=== PATIENT | female | born 1970 | race Caucasian/White ===

== ENCOUNTER 2016-08-04 16:02 | Inpatient (IN) ==
[2016-08-04] MEDS ORDERED: *HR* Morphine Soln 10 MG/5 ML UDC PO PRN (16:03)
[2016-08-04] MEDS ORDERED: Bisacodyl 10 MG RECTAL SUPPOSITORY RC PRN (16:25)
[2016-08-04] MEDS ORDERED: *HR* Promethazine 25 MG/ML VIAL IVP PRN (16:30)
[2016-08-04] MEDS ORDERED: Ipratropium/Albuterol Neb 3 ML IH PRN (16:30)
[2016-08-04] MEDS ORDERED: Ondansetron 4 MG/2 ML VIAL IVP PRN (16:30)
--- NOTE | 2016-08-04 16:52 | Palliative - Consult Note ---
Date of Encounter: 08/04/16 Time of Encounter: 17:38 - Assessment and Plan (1) Cancer related pain Status: Acute Assessment and plan: Ms. Chu has been on fentanyl patch 300 g, with oral morphine concentrate 60 mg every hour. She has been receiving morphine concentrate hourly for greater than 30 hours. She is admitted to [facility] for management of an acute pain crisis related to her cancer. We will initiate hydromorphone TOWER CLEANER with starting dose at 2 mg per hour and a TOWER CLEANER dose of 0.5 mg every 6 minutes as needed. Titrate accordingly. (2) Dyspnea Status: Acute Assessment and plan: Dyspnea likely related to cancer. Position for comfort. Hydromorphone TOWER CLEANER to assist with pain management and dyspnea management. Supplemental oxygen not to exceed 8 L/m. DuoNeb's every 4 hours as needed. Decadron 4 mg by mouth twice a day. Qualifiers: Dyspnea type: shortness of breath Qualified Code(s): R06.02 - Shortness of breath (3) Anxiety Status: Acute Assessment and plan: Family reports intolerance of lorazepam. She responds well to haloperidol. (4) Admission for hospice care Status: Acute Assessment and plan: 45-year-old female patient admitted for general inpatient hospice care for treatment of intractable pain and dyspnea related to small cell lung cancer. She will be placed on a hydromorphone TOWER CLEANER pump with titration as necessary. CODE STATUS DNR comfort care. Hospice nurse at bedside upon arrival. Patient does appear to be near end-of-life. Supportive care. Family notified and en route to the hospital. Given the patient's current physical examination and level of acuity, she will remain under general inpatient hospice care. (5) Constipation Status: Acute Assessment and plan: Constipation due to chronic opioid use. Unknown last bowel movement. Hospice nurse reports recent digital rectal exam 2 days ago with no stool noted in the rectal vault. Schedule MiraLAX daily if she is able to take in oral medications , bisacodyl rectal suppositories when necessary. Qualifiers: Constipation type: drug induced constipation Qualified Code(s): K59.03 - Drug induced constipation (6) Small cell lung cancer Status: Chronic Qualifiers: Laterality: left Qualified Code(s): C34.92 - Malignant neoplasm of unspecified part of left bronchus or lung Palliative-CN HPI - Data of Consult Patient: new to practice Consult date: 08/04/16 Requesting Physician: Renny Wall MD - Consult Narrative Palliative Care/Comfort Measures: Palliative care Reason for consult: symptom management History of present illness: Ms. Chu is a 45 year old female patient diagnosed with stage IV small cell lung C in May 2016. She started antineoplastic therapy at the [facility] and [facility] shortly following diagnosis. Unfortunately, she had progression of disease despite treatment, and the side effects of treatment caused her to decline. She elected to enroll in hospice care and focus on symptom management. Ms. Chu is admitted to general inpatient hospice for intense symptom control. She has been on escalating doses of oral morphine concentrate over the past 24 hours. Please see medication list for current doses. Ms. Chu has been experiencing worsening pain over the past week and she currently rates as 7 out of 10. A tolerable level for her is 0/10. She utilizes a fentanyl patch with oral morphine as needed for breakthrough pain. Her morphine dose has escalated to 60mg oral morphine concentrate hourly for > 30 hours. She does have a history of opioid abuse (oxycodone) and was seeking care at a suboxone clinic as recent as 2 months ago. Ms. Chu does use marijuana occasionally. Her hospice nurses at bedside and does provide some history as the patient is unable to carry on conversation. CC: Renny Wall MD Past Med Surg Social Fam HX - Past Medical History Source: old records reviewed Medical history: cancer (small cell lung CA), coronary artery disease ([place] in 1993), other (rectal fistula) Psychiatric history: anxiety, depression - Past Surgical History Surgical History: cholecystectomy, coronary bypass (CABG), hysterectomy, orthopedic, other (right knee arthroscope, lumbar fusion) - Social History Smoking Status: Current every day smoker Smokeless Tobacco Status: No Alcohol use: none Drug use: marijuana, prescription drug abuse - Family History Mother Living Status: Still Living Hx Family Cardiac Disorders: Yes Hx Family Respiratory Disorders: No Hx Family Cancer: Yes Hx Family GI Disorders: No Hx Family Endocrine Disorder: No Hx Family Neuromuscular Disorders: No Hx Family Neurologic Disorders: No Hx Family HEENT Disorders: No Hx Family Autoimmune Disorders: No Medications and Allergies Albuterol Sulfate [Albuterol Inhaler] 90 mcg IH Q4HR PRN 04/12/15 [History] Buspirone HCl [Buspar] 7.5 mg PO BID 04/12/15 [History] Ropinirole HCl [Requip] 3 mg PO HS 04/12/15 [History] Magnesium Oxide [Magnesium] 400 mg PO BID #60 tablet 05/24/16 [Rx] Potassium Chloride [K-Tab ER] 20 meq PO DAILY #30 tablet.er 05/24/16 [Rx] Clotrimazole [Mycelex Logan] 10 mg MM 5XD #50 logan 06/02/16 [Rx] Docusate [Colace] 100 mg PO BID #60 capsule 06/02/16 [Rx] Polyethylene Glycol 3350 [MiraLAX Powder Bulk 17.9 Oz] 1 scoop PO DAILY #510 gm 06/02/16 [Rx] Megestrol Acetate [Megace] 10 ml PO BID #400 mls 06/09/16 [Rx] Budesonide/Formoterol 160/4.5 [Symbicort 160/4.5] 2 puff IH BIDR 06/27/16 [ History] FentaNYL PATCH [Duragesic] 50 mcg TD Q72H #10 patch.td72 07/18/16 [Rx] Promethazine [Phenergan] 25 mg PO Q6HR PRN #30 tablet 07/18/16 [Rx] ALPRAZolam [Xanax 1 MG Tablet] 1 mg PO TID #90 tablet 07/21/16 [Rx] Hydromorphone HCl [Dilaudid] 4 mg PO Q6H PRN #120 tablet 07/21/16 [Rx] Promethazine [Phenergan] 25 mg RC Q6HR PRN #20 supp.rect 07/24/16 [Rx] Supplies [SUPPLIES] 1 each .ROUTE DAILY #1 each 07/25/16 [Rx] Dexamethasone [Decadron] 4 mg PO DAILY #30 tab 07/27/16 [Rx] Magic Mouthwash [Magic Mouthwash BLM] 10 ml PO Q4H PRN #240 ml 07/27/16 [Rx] Magic Mouthwash [Magic Mouthwash BLM] 10 ml PO QID PRN #240 ml 07/28/16 [Rx] Sucralfate [Carafate] 1 gm PO QID #120 tablet 07/28/16 [Rx] Allergies No Known Allergies Allergy (Verified 07/18/16 13:52) ROS unobtainable: due to mental status Review of systems: unable to assess detailed ROS due to pain crisis, will do complete ROS when symptoms are controlled. Palliative Care-Exam - Constitutional General appearance: Present: cooperative Exam: 45 year old female appearing chronically ill. She is minimally responsive, but when she wakes up, she is in distress (dyspneic, moaning, rocking motions). Right sided upper extremity/chest/and facial edema - Eye Eye exam: Present: periorbital swelling - ENT ENT exam: Present: mucous membranes dry - Respiratory Respiratory exam: Present: accessory muscle use, respiratory distress, rhonchi ( audible rhonchi) - Expanded Respiratory Exam Location: rhonchi: Left, Right, Lower, Upper - Cardiovascular Additional comments: heart tones obscured by lung sounds, pulse rate tachycardic and regular - GI/Abdominal Exam GI/Abdominal exam: Present: normal bowel sounds, soft. Absent: tenderness - Rectal Rectal exam: Present: deferred - Extremities Exam Extremities exam: Present: pedal edema (mild) - Expanded Upper Extremities Exam Upper Arm exam: Present: swelling (right side) - Neurological Exam Additional comments: alert with periods of somnolence, follows basic commands - Skin Additional comments: skin color ashen, warm and dry Palliative Quality Palliative Quality: Screen for Code Status: Yes, Screen for Goals of Care: Yes, Screen for Pain: Yes, If Pain Regimen Started, Initiate Bowel Regimen: Yes, Screen for Nausea/Vomitting: Yes Code Status: 08/04/16 16:25 Resuscitation Status: Active [RES] Routine Resuscitation Status: DNR-Comfort Care Comment:
[2016-08-04] MEDS: Haloperidol Oral Conc 10 MG/5 ML UDC PO PRN ×2 (17:46→20:39)
[2016-08-04] MEDS ORDERED: 0.9 % Sodium Chloride 1,000 ML ONE (18:01)
[2016-08-04] MEDS: Furosemide 40 MG TABLET PO SCH (18:12)
[2016-08-04] MEDS: Magic Mouthwash 10 ML UD Cup PO SCH (18:12)
[2016-08-04] MEDS: *HR* HYDROmorphone 20 MG/20 ML PCA IVC SCH (18:22)
[2016-08-04] MEDS ORDERED: *HR* LORazepam 2 MG/ML VIAL IVP SCH (20:00)
[2016-08-04] MEDS ORDERED: Divalproex (24 HR) 500 MG TABLET PO SCH (21:00)
[2016-08-04] MEDS: Budesonide/Formoterol 160/4.5 MDI IH SCH (23:10)
[2016-08-04] MEDS: Gabapentin 300 MG CAPSULE PO SCH (23:45)
[2016-08-04] MEDS: ALPRAZolam 1 MG TABLET PO SCH (23:45)
[2016-08-05] MEDS: *HR* HYDROmorphone 20 MG/20 ML PCA IVC SCH ×3 (02:48→21:58)
[2016-08-05] MEDS: Budesonide/Formoterol 160/4.5 MDI IH SCH (08:32)
[2016-08-05] MEDS ORDERED: Dexamethasone 10 MG/ML VIAL IVP ONE (10:00)
[2016-08-05] MEDS ORDERED: *HR* HYDROmorphone 20 MG/20 ML PCA IVC SCH ×4 (10:07→14:19)
--- NOTE | 2016-08-05 10:17 | Palliative Progress Note ---
Date of Encounter: 08/05/16 Time of Encounter: 10:12 - Assessment and plan (1) Dyspnea Current Visit: Yes Status: Acute Assessment and plan: Dyspnea refractory to current treatment. Schedule nebulizers Q4 hours, change lasix to 40mg IVP daily, Decadron 16mg today. May consider palliative sedation if symptoms persist. Qualifiers: Dyspnea type: shortness of breath Qualified Code(s): R06.02 - Shortness of breath (2) Cancer related pain Current Visit: No Status: Acute Assessment and plan: Continue with Fentanyl patch at 300mcg/hr. Increase Dilaudid drip to 3mg/hr with a 0.5mg bolus dose as needed. (3) Anxiety Current Visit: Yes Status: Acute Assessment and plan: Patient did not have therapeutic effect when using lorazepam in the past. May consider trial of alternate benzodiazepine if symptoms persist. Patient is adamant that she does NOT want to try lorazepam due to the adverse effects she experienced earlier this year. She is awake and able to discuss Xanax dosing with me. Will adjust the alprazolam to every 4 hours. (4) Admission for hospice care Current Visit: Yes Status: Acute Assessment and plan: Ms. Chu is currently under general in-patient hospice care for uncontrolled dyspnea and pain. Her opioid therapy has been titrated up to hydromorphone 3mg/ hr continuous with bolus dosing as needed in addition to the Fentanyl patch. Discussed plan of care with patient's mother. Consulted with CAPC guidelines, Palliative WAREHOUSE ADMINISTRATOR, Hospice Corporate Quality Engineer-Dr. Jayme Kim, Joshua ibrahim (hospice pharmacy), as well as hospital pharmacist. Ms. Chu's family is well aware of the risks associated with high opioid doses including ( but not limited to) respiratory depression and even , family verbalizes understanding. Family present at bedside. Pipe Stem Sawyer services offered. Ms. Chu is at early end of life and not expected to survive long. Current plan: Increase hydromorphone drip PRN with additional breakthrough dosing as needed Schedule DuoNebs every 4 hours Supplemental oxygen Haloperidol 10mg IV x1, then 5mg IV every 4 hours as needed (patient's mother reports best symptom control with the use of haloperidol Decadron 16mg IV x 1 dose for dyspnea Lasix 40mg IV daily May place a john catheter as needed Non-Pharmacological Measures: Cool room with fan Family support at bedside offered music therapy Pipe Stem Sawyer support at bedside Additional considerations: BiPAP with gentle settings for air hunger Phenobarbitol IM vs. PO for uncontrolled anxiety/agitation Palliative sedation (5) Constipation Current Visit: No Status: Chronic Assessment and plan: Bisacodyl PRN with MiraLax PRN. Qualifiers: Constipation type: drug induced constipation Qualified Code(s): K59.03 - Drug induced constipation (6) Small cell lung cancer Current Visit: No Status: Chronic Qualifiers: Laterality: left Qualified Code(s): C34.92 - Malignant neoplasm of unspecified part of left bronchus or lung - Time Spent With Patient Total time spent is greater than 50% in coordination of care (as documented) at patient's floor/unit and/or counseling patient: Greater than 35 minutes - Subjective Interval history: Ms. Chu remains restless/agitated and states she feels like she is "smothering" despite current medications. Her mother reports a very restless night. Her oxygen requirements have been titrated up to 15 liters via nasal cannula. - Constitutional General appearance: Absent: cooperative Exam: 45 year old female in acute distress, agitated and rocking back and forth. - ENT Additional comments: unable to control secretions - Respiratory Respiratory exam: Present: accessory muscle use, respiratory distress Additional comments: audible rhonchi - Cardiovascular Cardiovascular exam: Present: tachycardia - GI/Abdominal GI/Abdominal exam: Present: hypoactive bowel sounds, soft. Absent: tenderness - Extremities Exam Extremities exam: Present: pedal edema Additional comments: right side > left - Neurological Exam Neurological exam: Absent: alert - Psychiatric Psychiatric exam: Present: agitated, anxious - Skin Skin exam: Present: dry, warm. Absent: normal color (ashen) Palliative Quality Palliative Quality: Screen for Code Status: Yes, Screen for Goals of Care: Yes, Screen for Pain: Yes, If Pain Regimen Started, Initiate Bowel Regimen: Yes, Screen for Nausea/Vomitting: Yes Code Status: 08/04/16 16:25 Resuscitation Status: Active [RES] Routine Comment: Resuscitation Status: DNR-Comfort Care Consult Discharge Plan - Plan Referrals: NO,PCP [Primary Care Provider] -
[2016-08-05] MEDS: Magic Mouthwash 10 ML UD Cup PO SCH ×3 (10:45→15:56)
[2016-08-05] MEDS: ALPRAZolam 1 MG TABLET PO SCH ×5 (10:45→20:52)
[2016-08-05] MEDS: Gabapentin 300 MG CAPSULE PO SCH ×3 (10:45→21:18)
[2016-08-05] MEDS: Haloperidol Lactate 5 MG/ML VIAL IVP PRN ×3 (10:46→14:38)
[2016-08-05] MEDS: *HR* HYDROmorphone 2 MG/ML SYRINGE IVP PRN ×7 (11:06→23:44)
[2016-08-05] MEDS ORDERED: Atropine Sulfate 1% 40 DROP/2 ML BOTTLE SL PRN (12:46)
[2016-08-05] MEDS: Scopolamine Patch 1.5 MG PATCH.TD72 TD SCH (13:17)
[2016-08-05] MEDS: Furosemide 40 MG/4 ML VIAL IVP SCH (15:44)
[2016-08-05] MEDS: Furosemide 40 MG TABLET PO SCH (15:57)
[2016-08-05] MEDS: Ipratropium/Albuterol Neb 3 ML IH SCH ×3 (16:56→23:06)
[2016-08-06] MEDS: *HR* HYDROmorphone 20 MG/20 ML PCA IVC SCH ×6 (00:41→22:42)
[2016-08-06] MEDS: *HR* HYDROmorphone 2 MG/ML SYRINGE IVP PRN ×5 (00:45→21:24)
[2016-08-06] MEDS: ALPRAZolam 1 MG TABLET PO SCH ×6 (01:46→21:24)
[2016-08-06] MEDS: Haloperidol Lactate 5 MG/ML VIAL IVP PRN ×3 (03:35→16:43)
[2016-08-06] MEDS: Ipratropium/Albuterol Neb 3 ML IH SCH ×6 (03:43→20:58)
[2016-08-06] MEDS: Furosemide 40 MG/4 ML VIAL IVP SCH (08:25)
[2016-08-06] MEDS ORDERED: Ipratropium/Albuterol Neb 3 ML IH PRN (09:47)
--- NOTE | 2016-08-06 09:58 | Palliative Progress Note ---
Date of Encounter: 08/06/16 Time of Encounter: 10:53 - Assessment and plan (1) Dyspnea Current Visit: Yes Status: Acute Assessment and plan: Dyspnea refractory to current treatment. Schedule nebulizers Q4 hours with every 2 hours as needed, change lasix to 40mg IVP daily, Decadron 8mg today. May consider palliative sedation if symptoms persist. Qualifiers: Dyspnea type: shortness of breath Qualified Code(s): R06.02 - Shortness of breath (2) Cancer related pain Current Visit: No Status: Acute Assessment and plan: Continue with Fentanyl patch at 300mcg/hr. Dilaudid drip to 7mg/hr with a 1.5mg bolus dose as needed. Adjust continuous and PRODUCTION EXPEDITER dose accordingly. (3) Anxiety Current Visit: Yes Status: Acute Assessment and plan: Patient did not have therapeutic effect when using lorazepam in the past. May consider trial of alternate benzodiazepine if symptoms persist. Patient is adamant that she does NOT want to try lorazepam due to the adverse effects she experienced earlier this year. She is awake and able to discuss Xanax dosing with me. Will adjust the alprazolam to every 4 hours, crushed and slurried. Increase Haloperidol to 10mg every 4 hours as needed. May consider oral phenobarbitol if symptoms refractory to current treatment. (4) Admission for hospice care Current Visit: Yes Status: Acute Assessment and plan: Ms. Chu is currently under general in-patient hospice care for uncontrolled dyspnea and pain. Her opioid therapy has been titrated up to hydromorphone 7 mg /hr continuous with bolus dosing as needed in addition to the Fentanyl patch. Discussed plan of care with patient's mother. Consulted with CAPC guidelines, Palliative CLOTH BOIL OFF MACHINE OPERATOR, Hospice Nursing Center Tutor-Dr. Jayme Kim, Joshua ibrahim (hospice pharmacy), as well as hospital pharmacist. Ms. Chu's family is well aware of the risks associated with high opioid doses including ( but not limited to) respiratory depression and even , family verbalizes understanding. Family present at bedside. Relationship Counselor services offered. Ms. Chu is at early end of life and not expected to survive long. Current plan: Increase hydromorphone drip PRN with additional breakthrough dosing as needed. Schedule DuoNebs every 4 hours with PRN doses every 2 hours. Supplemental oxygen now at 15 L/m via high flow nasal cannula Haloperidol 10mg IV every 4 hours as needed (patient's mother reports best symptom control with the use of haloperidol) Alprazolam 1 mg every 4 hours crushed and slurried. Trial dose of valium this afternoon. If tolerates better, will switch to valium Decadron 8 mg IV twice a day for dyspnea Lasix 40mg IV daily May place a john catheter as needed Non-Pharmacological Measures: Cool room with fan Family support at bedside offered music therapy Relationship Counselor support at bedside Additional considerations: BiPAP with gentle settings for air hunger Phenobarbitol IM vs. PO for uncontrolled anxiety/agitation Palliative sedation (5) Constipation Current Visit: No Status: Chronic Assessment and plan: Bisacodyl PRN with MiraLax PRN. Ms. Chu is unable to swallow large volumes of liquids, therefore will DC MiraLAX. Administer bisacodyl rectal suppository 1 today, if no relief may give fleets enema. Update: Fleet emena administered resulting in a large BM per BSC. Qualifiers: Constipation type: drug induced constipation Qualified Code(s): K59.03 - Drug induced constipation (6) Small cell lung cancer Current Visit: No Status: Chronic Qualifiers: Laterality: left Qualified Code(s): C34.92 - Malignant neoplasm of unspecified part of left bronchus or lung - Time Spent With Patient Total time spent is greater than 50% in coordination of care (as documented) at patient's floor/unit and/or counseling patient: - Subjective Interval history: Ms. Chu continues to report restless/agitation and states she feels like she is "smothering" despite current medications. Her mother reports a noticable improvement in agitation, but it still occurs frequently. Her oxygen requirements continue to require 15 liters via nasal cannula. - Constitutional Exam: 45 year old female, audible rhonchi, lethargic at times but alternates with severe agitation, unable to control oral secretions. - Eye Eye exam: Present: EOMI, PERRL - ENT ENT exam: Present: mucous membranes moist - Respiratory Respiratory exam: Present: accessory muscle use, respiratory distress, rhonchi ( audible), tachypnea - Cardiovascular Cardiovascular exam: Present: RRR - GI/Abdominal GI/Abdominal exam: Present: soft. Absent: tenderness Additional comments: last BM unknown - Extremities Exam Extremities exam: Present: pedal edema - Neurological Exam Neurological exam: Present: alert (oriented to person, frequent episodes of agitation) - Psychiatric Psychiatric exam: Present: agitated, anxious - Skin Skin exam: Present: dry, warm Palliative Quality Palliative Quality: Screen for Code Status: Yes, Screen for Goals of Care: Yes, Screen for Pain: Yes, If Pain Regimen Started, Initiate Bowel Regimen: Yes, Screen for Nausea/Vomitting: Yes Code Status: 08/04/16 16:25 Resuscitation Status: Active [RES] Routine Comment: Resuscitation Status: DNR-Comfort Care Consult Discharge Plan - Plan Referrals: NO,PCP [Primary Care Provider] -
[2016-08-06] MEDS: Gabapentin 300 MG CAPSULE PO SCH ×2 (10:43→14:28)
[2016-08-06] MEDS: SODIUM CHLORIDE 0.9% IVC SCH ×2 (11:18→17:53)
[2016-08-06] MEDS: HYDROMORPHONE IVC SCH ×2 (11:18→17:53)
[2016-08-06] MEDS: Dexamethasone 10 MG/ML VIAL IVP SCH ×2 (11:39→21:43)
[2016-08-06] MEDS ORDERED: diazePAM 10 MG/2 ML SYRINGE IVP ONE (14:00)
[2016-08-06] MEDS ORDERED: *HR* FentaNYL PATCH 100 MCG PATCH TD SCH (16:15)
[2016-08-07] MEDS: SODIUM CHLORIDE 0.9% IVC SCH ×4 (00:03→17:55)
[2016-08-07] MEDS: HYDROMORPHONE IVC SCH ×4 (00:03→17:55)
[2016-08-07] MEDS: Ipratropium/Albuterol Neb 3 ML IH SCH ×7 (00:09→23:33)
[2016-08-07] MEDS: *HR* HYDROmorphone 2 MG/ML SYRINGE IVP PRN ×8 (00:54→19:51)
[2016-08-07] MEDS: ALPRAZolam 1 MG TABLET PO SCH ×5 (02:07→22:34)
[2016-08-07] MEDS: Gabapentin 300 MG CAPSULE PO SCH ×4 (06:36→21:18)
[2016-08-07] MEDS: *HR* HYDROmorphone 20 MG/20 ML PCA IVC SCH ×5 (07:27→21:00)
[2016-08-07] MEDS: Dexamethasone 10 MG/ML VIAL IVP SCH ×2 (08:27→22:34)
[2016-08-07] MEDS: Furosemide 40 MG/4 ML VIAL IVP SCH ×2 (08:27→17:01)
--- NOTE | 2016-08-07 09:43 | Palliative Progress Note ---
Date of Encounter: 08/07/16 Time of Encounter: 09:43 - Assessment and plan (1) Dyspnea Current Visit: Yes Status: Chronic Assessment and plan: Dyspnea refractory to current treatment, but seems to be improving. Scheduled nebulizers Q4 hours with every 2 hours as needed, change lasix to 40mg IVP BID, Decadron 8mg BID. May consider palliative sedation if symptoms persist. Qualifiers: Dyspnea type: shortness of breath Qualified Code(s): R06.02 - Shortness of breath (2) Cancer related pain Current Visit: Yes Status: Chronic Assessment and plan: Continue with Fentanyl patch at 300mcg/hr. Dilaudid drip to 9mg/hr with a mg bolus dose as needed. Adjust continuous and SECURITY MESSENGER dose accordingly. (3) Anxiety Current Visit: Yes Status: Acute Assessment and plan: Patient did not have therapeutic effect when using lorazepam in the past. May consider trial of alternate benzodiazepine if symptoms persist. Patient is adamant that she does NOT want to try lorazepam due to the adverse effects she experienced earlier this year. She is awake and able to discuss Xanax dosing with me. Will adjust the alprazolam to every 4 hours, crushed and slurried. Increase Haloperidol to 10mg every 4 hours as needed. Add in alprazolam 1mg every 2 hours as needed for breakthrough anxiety/agitation. May consider oral phenobarbitol if symptoms refractory to current treatment. (4) Admission for hospice care Current Visit: Yes Status: Acute Assessment and plan: Ms. Chu is currently under general in-patient hospice care for uncontrolled dyspnea and pain. Her opioid therapy has been titrated up to hydromorphone 7 mg /hr continuous with bolus dosing as needed in addition to the Fentanyl patch. Discussed plan of care with patient's mother. Consulted with CAPC guidelines, Palliative REPORT CLERK, Hospice Law Writer-Dr. Jayme Kim, Joshua ibrahim (hospice pharmacy), as well as hospital pharmacist during this admission. Ms. Chu's family is well aware of the risks associated with high opioid and benzodiazepine doses including (but not limited to) respiratory depression and even , family verbalizes understanding. Family present at bedside. Aquaculture Program Director services offered. Ms. Chu is at early end of life and not expected to survive long. Current plan: Increase hydromorphone drip PRN with additional breakthrough dosing as needed. Current dose 9mg/hr with SECURITY MESSENGER demand dose of 2mg every 6 min, and breakthrough 2mg every hours as needed administered by nursing. Schedule DuoNebs every 4 hours with PRN doses every 2 hours. Supplemental oxygen now at 15 L/m via high flow nasal cannula Haloperidol 10mg IV every 4 hours as needed (patient's mother reports best symptom control with the use of haloperidol) Alprazolam 1 mg every 4 hours crushed and slurried. Will add in additional 1mg every 2 hours as needed for breakthrough anxiety/agitation Decadron 8 mg IV twice a day for dyspnea Lasix 40mg IV BID May place a john catheter as needed Non-Pharmacological Measures: Cool room with fan Family support at bedside Offered music therapy Aquaculture Program Director support at bedside Additional considerations: BiPAP with gentle settings for air hunger Phenobarbitol IM vs. PO for uncontrolled anxiety/agitation Palliative sedation (5) Constipation Current Visit: Yes Status: Chronic Assessment and plan: Bisacodyl PRN. Fleet emena administered yesterday resulting in a large BM per BSC. Qualifiers: Constipation type: drug induced constipation Qualified Code(s): K59.03 - Drug induced constipation (6) Small cell lung cancer Current Visit: Yes Status: Chronic Qualifiers: Laterality: left Qualified Code(s): C34.92 - Malignant neoplasm of unspecified part of left bronchus or lung - Time Spent With Patient Total time spent is greater than 50% in coordination of care (as documented) at patient's floor/unit and/or counseling patient: - Subjective Interval history: Ms. Chu is sitting up in bed. Family reports a "better" night with less agitation. - Constitutional Exam: 45 year old female appearing near end of life. She is resting quietly at this time. 1:1 sitter at bedside. - Eye Eye exam: Present: PERRL - Respiratory Respiratory exam: Present: accessory muscle use, respiratory distress (improved from prior visits. ), rhonchi (audible) - Cardiovascular Cardiovascular exam: Present: RRR, tachycardia Additional comments: lung sound obscure the apical rhythm. Pulse regular and tachycardic - GI/Abdominal GI/Abdominal exam: Present: soft. Absent: firm, guarding, tenderness - Additional comments: john catheter in place draining yellow urine - Extremities Exam Extremities exam: Present: pedal edema - Neurological Exam Neurological exam: Present: alert (at times, ), no focal deficits, strengths equal and symetr throughout. Absent: oriented X3 - Psychiatric Psychiatric exam: Present: agitated, anxious - Skin Skin exam: Present: dry, warm Additional comments: pale/ashen in color Palliative Quality Palliative Quality: Screen for Code Status: Yes, Screen for Goals of Care: Yes, Screen for Pain: Yes, If Pain Regimen Started, Initiate Bowel Regimen: Yes, Screen for Nausea/Vomitting: Yes Code Status: 08/04/16 16:25 Resuscitation Status: Active [RES] Routine Comment: Resuscitation Status: DNR-Comfort Care Consult Discharge Plan - Plan Referrals: NO,PCP [Primary Care Provider] -
[2016-08-07] MEDS: Haloperidol Lactate 5 MG/ML VIAL IVP PRN ×2 (13:35→17:55)
[2016-08-07] MEDS: ALPRAZolam 1 MG TABLET PO PRN ×2 (14:55→19:52)
[2016-08-07] MEDS ORDERED: Haloperidol Lactate 5 MG/ML VIAL IVP PRN (21:48)
[2016-08-07] MEDS: PHENobarbital 65 MG/ML VIAL IVP SCH (22:41)
[2016-08-07] MEDS: Haloperidol Lactate 5 MG/ML VIAL IVP SCH (22:41)
[2016-08-08] MEDS: HYDROMORPHONE IVC SCH ×2 (00:12→07:09)
[2016-08-08] MEDS: SODIUM CHLORIDE 0.9% IVC SCH ×2 (00:12→07:09)
[2016-08-08] MEDS: ALPRAZolam 1 MG TABLET PO SCH ×5 (00:19→16:20)
[2016-08-08] MEDS: Haloperidol Lactate 5 MG/ML VIAL IVP SCH ×6 (00:19→16:20)
[2016-08-08] MEDS: Ipratropium/Albuterol Neb 3 ML IH SCH ×6 (05:01→23:07)
[2016-08-08] MEDS: PHENobarbital 65 MG/ML VIAL IVP SCH ×3 (05:12→16:20)
[2016-08-08] MEDS: Gabapentin 300 MG CAPSULE PO SCH ×2 (07:49→12:32)
[2016-08-08] MEDS: Dexamethasone 10 MG/ML VIAL IVP SCH (07:55)
[2016-08-08] MEDS: Furosemide 40 MG/4 ML VIAL IVP SCH ×2 (07:56→16:19)
[2016-08-08] MEDS: *HR* HYDROmorphone 20 MG/20 ML PCA IVC SCH ×2 (07:59→22:11)
--- NOTE | 2016-08-08 09:13 | Palliative Progress Note ---
Date of Encounter: 08/08/16 Time of Encounter: 08:45 - Assessment and plan (1) Fever Current Visit: Yes Status: Acute Assessment and plan: Fever 103.9. Suspect terminal fever as patient is terminal with lung cancer. Educated mother on bodies terminal response to disease. Plan: 1. Add Tylenol rectal suppository 650mg every 4 hours 2. Cool cloth to forehead 3. Sponge bath for comfort 4. Low flow fan for air flow (2) Dyspnea Current Visit: Yes Status: Chronic Assessment and plan: Respirations rapid and shallow. Rate 32. Mouth breathing with 15L high flow NC. Sats 95%. Mouth care provided. Plan: 1. Duonebs 2. Supplemental O2 3. Lasix 4. Dilaudid [employer]ILY [employer] 5. Decadon Repositioned with HOB up and fan in room with low air flow. Provided mouth care for comfort. Patient started on scheduled 40 mg of phenobarbital. Qualifiers: Dyspnea type: shortness of breath Qualified Code(s): R06.02 - Shortness of breath (3) Cancer related pain Current Visit: No Status: Chronic Assessment and plan: Patient appears comfortable at present. Plan: 1. Dilaudid [employer]ILY [employer]ER - Requested 16 mg BTP in past 24 hrs. 2. Fentanyl patch 3. Phenobarbital added at 40mg every 6 hours for adjunct sedation. Can titrate as needed. Patient has had 2 doses and mother reports patient is more comfortable. 4. Adjunct Haldol and Xanax scheduled and PRN 5. Decradon (4) Constipation by delayed colonic transit Current Visit: No Status: Acute Assessment and plan: Patient last BM 08/06. Patient om bowel regimen. Plan: 1. Miralax 2. Dulcolax 3. Monitor BMs Patient terminal receiving high doses of opioids for comfort. No oral intake due to altered state of consciousness. (5) Delirium Current Visit: No Status: Acute Assessment and plan: Patient with bouts of confusion and disorientation to time and place. Mother reports that patient attempted to get out of bed last evening. Haldol adjusted as needed. Current dose is 10 mg IVP every 4 hrs. Plan: Continue to adjust as needed. Patient used no PRN doses. Phenobarbital was added to POC. (6) Goals of care, counseling/discussion Current Visit: Yes Status: Acute Assessment and plan: Mother at bedside. Updated on patients terminal fevers reaching 103.9 this AM. Tylenol added to POC and discussed bodies response to disease process. Mother understands that goals are for comfort. Patient with terminal fevers and bouts of delirium last evening. I explained phenobarbital doses and drug effects on body. Mother verbalized understanding and provided support. - Time Spent With Patient Total time spent is greater than 50% in coordination of care (as documented) at patient's floor/unit and/or counseling patient: 25 - 35 minutes - Subjective Interval history: Patient resting, eyes closed, respirations rapid and shallow. Mother at bedside. Reports that patient has rested well since this AM. Doesn't respond to name. Pupils equal. Temp 103.9, kristel and hot. - Constitutional Vitals: Temp. 103.9. General appearance: Present: febrile - Head Head exam: Present: atraumatic, normal inspection - Eye Eye exam: Present: PERRL Pupils: Present: PERRL - ENT ENT exam: Present: mucous membranes dry (oral care provided) - Neck Neck exam: Present: normal inspection - Respiratory Respiratory exam: Present: decreased breath sounds - Expanded Respiratory Exam Location: decreased breath sounds: Left, Right, Lower - Cardiovascular Cardiovascular exam: Present: RRR, +S1, +S2, tachycardia (HR 138) - Expanded Cardiovascular Exam Peripheral pulses: 1+: Femoral (L) PM, Femoral (R) PM, Posterior Tibialis (L), Posterior Tibialis (R), 2+: Carotid (L) PM, Carotid (R) PM, Radial (L), Radial ( R), Dorsalis Pedis (L) PM, Dorsalis Pedis (R) PM - GI/Abdominal GI/Abdominal exam: Present: diminished bowel sounds, soft (Zepeda catheter with minimal dark yellow urine) - Rectal Rectal exam: Present: deferred - Extremities Exam Extremities exam: Present: pedal edema (left leg with 3+ ankle and leg edema) - Neurological Exam Neurological exam: Present: altered - Psychiatric Psychiatric exam: Present: flat affect - Skin Skin exam: Present: pallor, warm Palliative Quality Palliative Quality: Screen for Code Status: Yes, Screen for Goals of Care: Yes, Screen for Pain: Yes, If Pain Regimen Started, Initiate Bowel Regimen: Yes, Screen for Nausea/Vomitting: Yes Code Status: 08/04/16 16:25 Resuscitation Status: Active [RES] Routine Comment: Resuscitation Status: DNR-Comfort Care Consult Discharge Plan - Plan Referrals: NO,PCP [Primary Care Provider] -
[2016-08-08] MEDS ORDERED: HYDROMORPHONE IVC SCH ×2 (10:00)
[2016-08-08] MEDS ORDERED: SODIUM CHLORIDE 0.9% IVC SCH ×2 (10:00)
[2016-08-08] MEDS: Acetaminophen 650 MG RECTAL SUPP RC SCH ×3 (10:04→16:20)
[2016-08-08] MEDS ORDERED: Acetaminophen 650 MG RECTAL SUPP RC SCH (12:00)
[2016-08-08] MEDS: Scopolamine Patch 1.5 MG PATCH.TD72 TD SCH (12:19)
[2016-08-08] MEDS ORDERED: Lacri-Lube 3.5 GM TUBE BOTH EYES PRN (15:35)
[2016-08-08 22:15] VITALS: BP 87/54
[2016-08-09] MEDS: Ipratropium/Albuterol Neb 3 ML IH SCH ×2 (03:36→08:21)
--- NOTE | 2016-08-09 07:41 | Pallative History & Physical ---
Date of Encounter: 08/09/16 Time of Encounter: 07:41 Assessment and Plan (1) Small cell lung cancer Current visit: Yes Status: Chronic Patient admitted for pain control, and shortness of breath control metastatic also lung cancer, which had broken through aggressive treatment. Patient passed just prior to examination by myself. palliative care consultation for history and physical details. Qualifiers: Laterality: left Qualified Code(s): C34.92 - Malignant neoplasm of unspecified part of left bronchus or lung Internal Medicine - H&P: HPI Chief complaint: Shortness of breath History of present illness: Ms. 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 He was admitted for intense symptom control. Patient passed just before I actually saw her. Please see the palliative care consultation. This will serve as a hospice history and physical as well. Past Med Surg Social Fam HX - Past Medical History Medical history: cancer (small cell lung CA), coronary artery disease ([place] in 1993), other (rectal fistula) Psychiatric history: anxiety, depression - Past Surgical History Surgical History: cholecystectomy, coronary bypass (CABG), hysterectomy, orthopedic, other (right knee arthroscope, lumbar fusion) - Social History Smoking Status: Current every day smoker Smokeless Tobacco Status: No Alcohol use: none Drug use: marijuana, prescription drug abuse - Family History Mother Living Status: Still Living Hx Family Cardiac Disorders: Yes Hx Family Respiratory Disorders: No Hx Family Cancer: Yes Hx Family GI Disorders: No Hx Family Endocrine Disorder: No Hx Family Neuromuscular Disorders: No Hx Family Neurologic Disorders: No Hx Family HEENT Disorders: No Hx Family Autoimmune Disorders: No Internal Medicine - H&P: Meds Albuterol Sulfate [Albuterol Inhaler] 2 puff IH Q4HR PRN 04/12/15 [History] Magnesium Oxide [Magnesium] 400 mg PO BID #60 tablet 05/24/16 [Rx] Potassium Chloride [K-Tab ER] 20 meq PO DAILY #30 tablet.er 05/24/16 [Rx] Clotrimazole [Mycelex Logan] 10 mg MM 5XD #50 logna 06/02/16 [Rx] Budesonide/Formoterol 160/4.5 [Symbicort 160/4.5] 2 puff IH BIDR 06/27/16 [ History] Promethazine [Phenergan] 25 mg PO Q6HR PRN #30 tablet 07/18/16 [Rx] ALPRAZolam [Xanax 1 MG Tablet] 1 mg PO TID #90 tablet 07/21/16 [Rx] Hydromorphone HCl [Dilaudid] 4 mg PO Q6H PRN #120 tablet 07/21/16 [Rx] Promethazine [Phenergan] 25 mg RC Q6HR PRN #20 supp.rect 07/24/16 [Rx] Dexamethasone [Decadron] 4 mg PO DAILY #30 tab 07/27/16 [Rx] Acetaminophen [Tylenol 650mg SUPP] 650 mg RC Q6H PRN 08/04/16 [History] Albuterol Sulfate [Ventolin Hfa] 2 puff IH BID 08/04/16 [History] Bisacodyl [Dulcolax] 10 mg RC DAILY PRN 08/04/16 [History] Divalproex (24 HR) [Depakote ER (24 HR)] 500 mg PO HS 08/04/16 [History] FentaNYL PATCH [Duragesic] 300 mcg TD Q72H 08/04/16 [History] Furosemide [Lasix] 40 mg PO BID 08/04/16 [History] Gabapentin [Neurontin] 600 mg PO TID 08/04/16 [History] Haloperidol Oral Conc [Haldol] 1 mg PO Q6H PRN 08/04/16 [History] Haloperidol Oral Conc [Haldol] 6 mg PO Q4H PRN 08/04/16 [History] Hyoscyamine SL [Levsin SL] 0.125 mg SL Q4H PRN 08/04/16 [History] Ipratropium/Albuterol Neb [Duoneb] 3 ml IH QID 08/04/16 [History] LORazepam [Ativan] 0.5 mg PO Q6H PRN 08/04/16 [History] Magic Mouthwash [Magic Mouthwash BLM] 10 ml PO Q4H PRN 08/04/16 [History] Morphine Oral CONC [Roxanol] 40 - 60 mg PO Q1H PRN 08/04/16 [History] Morphine Sulfate [Morphine Oral Solution] 5 mg PO Q3H PRN 08/04/16 [History] Nystatin [Nystatin Suspension] 500,000 unit PO TID 08/04/16 [History] Ondansetron HCl [Zofran] 4 - 8 mg PO TID PRN 08/04/16 [History] Oxygen 2 - 4 l NS AD 08/04/16 [History] Polyethylene Glycol 3350 [MiraLAX Powder Bulk 17.9 Oz] 17 gm PO DAILY PRN [History] Prochlorperazine Maleate [Compazine] 10 mg PO Q6H PRN 08/04/16 [History] Sennosides [Senna] 17.2 mg PO TID PRN 08/04/16 [History] Allergies No Known Allergies Allergy (Verified 07/18/16 13:52) ROS unobtainable: due to mental status Palliative Care-Exam - Constitutional Vitals: Temp Pulse Resp BP Pulse Ox 103.2 F H 151 18 87/54 83 08/08/16 22:08 08/08/16 22:08 08/09/16 03:36 08/08/16 22:08 08/09/16 03:36 Patient passed just prior to physical examination. Please see the palliative care consultation for full history and physical. General appearance: Present: febrile Palliative Quality Palliative Quality: Screen for Code Status: Yes, Screen for Goals of Care: Yes, Screen for Pain: Yes, If Pain Regimen Started, Initiate Bowel Regimen: Yes, Screen for Nausea/Vomitting: Yes Code Status: 08/04/16 16:25 Resuscitation Status: Active [RES] Routine Comment: Resuscitation Status: DNR-Comfort Care
--- NOTE | 2016-08-09 07:44 | Death Note ---
Discharge Sum: Summary - Date and Time Date of admission: 08/04/16 17:36 Date of : 08/09/16 Time of : 07:10 - Summary Details: pt on gip for symptom mgt of sob and pain symptoms were addressed. Pt passed comfortably with family at bedside cod Lung cancer, small cell co morbidity coronary artery disease Patient was a smoker I notified hospice this morning at 0730 - Additional Data Confirmation of as documented by pronouncing clinician: no pulse, no respirations, no heart sounds Family: at bedside Attending/PCP notified?: Yes Attending physician: Renny Wall MD Was code activated?: No Autopsy requested?: No electric power line examiner notified?: No Organ bank notified?: Yes Advance directives: No Hospice patient?: No Discharge Sum: Diag - PCOD Probable Cause of : Respiratory arrest Discharge Sum: Prov - Provider Primary care physician: PCP NO Consults: 08/04/16 16:25 Consult to Palliative Care [CONS] Routine Comment: Consulting Provider: Palliative Care [place] Reason for Consult: symptom management Call Completed: Yes
== END 2016-08-09 10:30 | disposition expired | DRG 182 ==
LOC: 2ANU 17:36
PROVIDERS: ADMIT Nurse Practitioner Family; ATTEND Family Medicine Hospice and Palliative Medicine